=== PATIENT | male | born 1985 | race American Indian/Alaskan Native ===

== ENCOUNTER 2017-01-29 20:56 | Emergency (ER) | payer OTHER, BC ==
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
[2017-01-30] MEDS ORDERED: TORADOL IM ONE (04:29)
[2017-01-30] MEDS ORDERED: FLEXERIL PO ONE (04:29)
[2017-01-30 05:12] VITALS: BP 154/104
== END 2017-01-30 05:17 | disposition home or self-care (01) ==
LOC: ED 20:56
DX: S16.1XXA Strain of muscle, fascia and tendon at neck level, initial encounter (principal); V43.52XA Car driver injured in collision with other type car in traffic accident, initial encounter; Y93.89 Activity, other specified; Y99.8 Other external cause status; Y92.488 Other paved roadways as the place of occurrence of the external cause
CPT/HCPCS: 96372; 99282; J1885; 93005; 93010